=== PATIENT | female | born 1995 | race Two or more races ===

== ENCOUNTER 2022-04-30 21:12 | Inpatient (IN) | payer MEDICAID ==
[~2022-04-30] VITALS: Ht 160 cm; Wt 67.1 kg
[2022-05-01] MEDS ORDERED: HALOPERIDOL 5 MG TABLET PO PRN (01:15)
[2022-05-01] MEDS ORDERED: ZOLPIDEM TARTRATE 10 MG TABLET PO PRN (01:15)
[2022-05-01 02:06] VITALS: BP 116/77
[2022-05-01 02:07] VITALS: BP 116/77
[2022-05-01] MEDS ORDERED: LOPERAMIDE HCL 2 MG CAPSULE PO PRN (07:00)
[2022-05-01] MEDS ORDERED: ALBUTEROL SULFATE HFA 90 MCG/PUFF 8 GM INHALER IH PRN (07:00)
[2022-05-01] MEDS ORDERED: CloNIDine HCL 0.1 MG TABLET PO PRN (07:00)
[2022-05-01] MEDS ORDERED: DOCUSATE SODIUM 100 MG CAPSULE PO PRN (07:00)
[2022-05-01] MEDS ORDERED: ACETAMINOPHEN 325 MG TABLET PO PRN (07:00)
[2022-05-01] MEDS ORDERED: IBUPROFEN 400 MG TABLET PO PRN (07:00)
[2022-05-01] MEDS ORDERED: GuaiFENesin/D-METHORPHAN [SUGAR-FREE] 200-20MG/10 ML SYRUP UDCUP PO PRN (07:00)
[2022-05-01] MEDS ORDERED: PETROLATUM,WHITE 28 GM JELLY TP PRN (07:00)
[2022-05-01] MEDS ORDERED: MAGNESIUM HYDROXIDE SUSPENSION 30 ML UDCUP PO PRN (07:00)
[2022-05-01] MEDS ORDERED: MAG HYDROX/AL HYDROX/SIMETH ES 30 ML SUSPENSION UDCUP PO PRN (07:00)
[2022-05-01] MEDS ORDERED: NICOTINE 14 MG/24 HOUR PATCH TD PRN (07:00)
[2022-05-01] MEDS ORDERED: ONDANSETRON HCL 4 MG TABLET PO PRN (07:00)
[2022-05-01 07:47] LABS: BASOPHILS % (AUTO) 0.2 % (0.0-2.0); EOSINOPHILS % (AUTO) 0.7 % (1.0-6.0); HEMATOCRIT 38.5 % (36-46); HEMOGLOBIN 12.4 g/dL (12.0-16.0); LYMPHOCYTES # (AUTO) 3.7 K/uL (1.0-4.8); LYMPHOCYTES % (AUTO) 50.9 % (22.0-44.0); MEAN CORPUSCULAR HEMOGLOBIN 27.6 pg (26.0-34.0); MEAN CORPUSCULAR HGB CONC 32.2 G/dL (31.0-37.0); MEAN CORPUSCULAR VOLUME 86 fL (80-100); MONOCYTES # (AUTO) 0.8 K/uL (0.1-1.0); MONOCYTES % (AUTO) 10.3 % (2.0-9.0); NEUTROPHILS # (AUTO) 2.8 K/uL (1.8-7.7); NEUTROPHILS % (AUTO) 37.9 % (40.0-70.0); PLATELET COUNT (AUTO) 138 K/uL (150-450); RED BLOOD CELL COUNT(AUTO) 4.49 MIL/uL (4.00-5.20); RED CELL DISTRIBUTION WIDTH 14.8 % (11.5-14.5)
[2022-05-01 08:21] LABS: ALANINE AMINOTRANSFERASE 12 U/L (12-78); ALBUMIN 3.8 g/dL (3.4-5.0); ALKALINE PHOSPHATASE 74 U/L (46-116); ANION GAP 5 mmol/L (8-16); ASPARTATE AMINOTRANSFERASE 11 U/L (15-37); BILIRUBIN,TOTAL 0.4 mg/dL (0.1-1.0); CALCIUM, TOTAL 8.9 mg/dL (8.8-10.5); CARBON DIOXIDE 29 mmol/L (22-29); CHLORIDE 104 mmol/L (98-107); CHOLESTEROL 134 mg/dL (131-200); CREATININE 0.64 mg/dL (0.60-1.30); GLUCOSE,RANDOM 82 mg/dL (70-110); HDL CHOLESTEROL 67 mg/dL (40-60); LDL CHOL (CALC.) 56 mg/dL (0-130); POTASSIUM 3.7 mmol/L (3.5-5.1); SODIUM SERUM 138 mmol/L (136-145); THYROID STIMULATING HORMONE 1.07 uIU/mL (0.36-3.74); TOTAL PROTEIN, SERUM 7.1 g/dL (6.4-8.2); TRIGLYCERIDES 53 mg/dL (15-150); UREA NITROGEN, BLOOD 10 mg/dL (7-18)
[2022-05-01 08:26] VITALS: BP 121/66
[2022-05-01 08:29] LABS: GLOMERULAR FILTR. RATE CALC > 60 mL/min (>60)
[2022-05-01] MEDS ORDERED: FLUO-341 PO (09:26)
[2022-05-01] MEDS: FLUoxetine HCL 20 MG CAPSULE PO SCH (11:00)
[2022-05-01] MEDS: LORazepam 1 MG TABLET PO PRN (15:43)
[2022-05-01 20:09] VITALS: BP 125/80
[2022-05-02 08:13] VITALS: BP 116/69
[2022-05-02] MEDS: FLUoxetine HCL 20 MG CAPSULE PO SCH (08:33)
[2022-05-02] MEDS: LORazepam 1 MG TABLET PO PRN (15:30)
[2022-05-02 20:06] VITALS: BP 118/84
[2022-05-03 08:16] VITALS: BP 131/80
[2022-05-03] MEDS: FLUoxetine HCL 20 MG CAPSULE PO SCH (08:48)
[2022-05-03] MEDS: LORazepam 1 MG TABLET PO PRN (11:28)
[2022-05-03 20:14] VITALS: BP 115/74
[2022-05-04 03:35] VITALS: BP 130/84
[2022-05-04] MEDS: LORazepam 1 MG TABLET PO PRN (03:39)
[2022-05-04 08:19] VITALS: BP 112/65
[2022-05-04] MEDS: FLUoxetine HCL 20 MG CAPSULE PO SCH (08:58)
[2022-05-04] MEDS ORDERED: FLUO20CA36 PO (09:52)
== END 2022-05-04 13:00 | disposition home or self-care (01) | DRG 751 ==
LOC: B2S 05-01 00:50
PROVIDERS: ADMIT Psychiatry & Neurology Psychiatry; ATTEND Psychiatry & Neurology Psychiatry
DX: F33.3 Major depressive disorder, recurrent, severe with psychotic symptoms (principal); R45.851 Suicidal ideations; G47.00 Insomnia, unspecified; K59.00 Constipation, unspecified; Z62.810 Personal history of physical and sexual abuse in childhood; F41.9 Anxiety disorder, unspecified; Z79.899 Other long term (current) drug therapy
CPT/HCPCS: 80053; 80061; 84439; 84443; 85025